=== PATIENT | male | born 1995 | race Caucasian/White ===

== ENCOUNTER 2021-12-15 03:11 | Emergency (ER) | payer MEDICAID ==
[~2021-12-15] VITALS: Ht 177.8 cm; Wt 86.4 kg
[2021-12-15 04:45] VITALS: BP 141/79
== END 2021-12-15 05:33 | disposition home or self-care (01) ==
LOC: EMS 03:11
DX: R00.2 Palpitations (principal)
CPT/HCPCS: 93005; 99283